=== PATIENT | female | born 1950 | race Caucasian/White ===

== ENCOUNTER 2021-03-19 20:50 | Outpatient (CLI) | payer MEDICARE, MEDICAID | END 2021-03-19 20:51 | disposition critical access hospital (66) | LOC: EMS 20:50 | DX: R55 Syncope and collapse (principal) | CPT/HCPCS: A0425; A0429 ==

== ENCOUNTER 2021-03-19 21:07 | Emergency (ER) | payer MEDICARE, MEDICAID ==
[2021-03-19] MEDS ORDERED: SODIUM CHLORIDE 0.9% 1,000 ML IV STA (21:17)
[2021-03-19 21:32] LABS: BASOPHILS # (AUTO) 0.1 10^3/uL (0.0-0.1); BASOPHILS % (AUTO) 0.5 %; EOSINOPHILS # (AUTO) 0.2 10^3/uL (0.0-0.7); EOSINOPHILS % (AUTO) 1.7 %; HCT - HEMATOCRIT 37.7 % (37.0-47.0); HGB - HEMOGLOBIN 12.9 g/dL (12.0-16.0); LYMPHOCYTES # (AUTO) 3.2 10^3/uL (1.5-3.5); MEAN CORPUSCULAR HEMOGLOBIN 31.4 pg (27.0-31.0); MEAN CORPUSCULAR HGB CONC 34.2 g/dL (32.0-36.0); MEAN CORPUSCULAR VOLUME 91.7 fL (81.0-99.0); MEAN PLATELET VOLUME 8.5 fL (7.9-10.8); MONOCYTES # (AUTO) 0.6 10^3/uL (0.0-1.0); MONOCYTES % (AUTO) 4.5 %; NEUTROPHILS # (AUTO) 8.3 10^3/uL (1.5-6.6); NEUTROPHILS % (AUTO) 66.7 %; PLT - PLATELET COUNT 242 10^3/uL (130-450); RED BLOOD COUNT 4.11 10^6/uL (4.20-5.40); RED CELL DISTRIBUTION WIDTH 14.1 % (12.0-15.0); WHITE BLOOD COUNT 12.5 x10^3/uL (4.8-10.8)
[2021-03-19 21:36] LABS: INR 1.1 (0.8-1.2); PT - PROTHROMBIN TIME 11.8 secs (9.9-12.6)
[2021-03-19 21:49] LABS: ALBUMIN 4.5 g/dL (3.2-5.5); ALBUMIN/GLOBULIN RATIO 1.4 (1.0-2.2); BILIRUBIN,TOTAL 0.4 mg/dL (0.2-1.0); CALCIUM 9.5 mg/dL (8.5-10.3); CREATININE 0.6 mg/dL (0.4-1.0); ETOH - ETHANOL 241.6 mg/dL; POTASSIUM 2.9 mmol/L (3.5-5.0); TOTAL PROTEIN 7.7 g/dL (6.7-8.2)
[2021-03-19] MEDS ORDERED: POTASSIUM CHLORIDE 20 MEQ TABLET PO STA (22:31)
--- NOTE | 2021-03-19 22:33 | ED Physician Documentation ---
History of Present Illness - Stated complaint Stated Complaint: GLF with LOC - Chief complaint Chief Complaint: Neuro - History obtained from History obtained from: Patient, Family, EMS - Additonal information Additional information: Patient is brought to the emergency department by EMS after having a ground- level fall at home. The patient does not remember exactly what happened. Medics state that they were told by the son, whom the patient was visiting, that she was walking through the kitchen when she suddenly fell. It is not clear whether she lost consciousness before, during, or as a result of the fall. The patient seemed to hit her head on the floor and was then unconscious for several minutes. She had had no complaints beforehand. Medics state that by the time they got there, the patient had awakened and that she had no complaints. They do report that the son was quite distraught on scene, but thought that the patient may have gotten into some alcohol. She also takes trazodone and Xanax, but it is unclear what time her last doses were. The patient's only complaint at this time is pain in her left shoulder, especially when she tries to move it. No shortness of breath. No rib pain. No hip pain. No back or neck pain. No head pain. She otherwise feels well. The patient resides with her daughter in [place], but was just here visiting her son in [place]. Review of Systems Ten Systems: 10 systems reviewed and negative Constitutional: reports: Reviewed and negative Eyes: reports: Reviewed and negative Ears: reports: Reviewed and negative Nose: reports: Reviewed and negative Throat: reports: Reviewed and negative Cardiac: reports: Reviewed and negative Respiratory: reports: Reviewed and negative GI: reports: Reviewed and negative : reports: Reviewed and negative Skin: reports: Reviewed and negative Musculoskeletal: reports: Joint pain Neurologic: reports: Reviewed and negative Psychiatric: reports: Reviewed and negative Endocrine: reports: Reviewed and negative Immunocompromised: reports: Reviewed and negative PD PAST MEDICAL HISTORY - Past Medical History Past Medical History: Yes Cardiovascular: High cholesterol Psych: Depression, Anxiety, Other Other Past Medical History: Insomnia - Past Surgical History Past Surgical History: Yes Ortho: Hip replacement, Spine surgery - Present Medications Home Medications: Ambulatory Orders Medication Instructions Recorded Confirmed Rovastatin 10 mg PO DAILY 03/19/21 Sertraline HCl 150 mg PO DAILY 03/19/21 03/19/21 Trazodone HCl 100 mg PO QPM 03/19/21 03/19/21 clonazePAM [Clonazepam] 0.5 mg PO DAILY PRN 03/19/21 03/19/21 HYDROcod/ACETAM 5/325 [[place] 5/325] 1 - 2 tablet PO Q6H PRN #20 tablet 03/20/21 Potassium Chloride [K-Dur] 20 meq PO BIDWM #14 tablet 03/20/21 - Allergies Allergies/Adverse Reactions: Allergies Allergy/AdvReac Type Severity Reaction Status Date / Time Penicillins Allergy Itching Verified 03/19/21 21:22 - Social History Does the pt smoke?: Yes Smoking Status: Current every day smoker Does the pt drink ETOH?: Yes ETOH Use: Beer Does the pt have substance abuse?: No - Immunizations Immunizations are current?: Yes - POLST Patient has POLST: No PD ED PE NORMAL - Vitals Vital signs reviewed: Yes - General General: No acute distress, Well developed/nourished, Other (Alert, oriented x2, which is baseline.) - HEENT HEENT: Atraumatic, PERRL, EOMI, Moist mucous membranes - Neck Neck: Supple, no meningeal sign, No bony TTP, Other (In C-spine precautions.) - Cardiac Cardiac: RRR, No murmur, Strong equal pulses - Respiratory Respiratory: No respiratory distress, Clear bilaterally - Abdomen Abdomen: Soft, Non tender, Non distended - Back Back: No spinal TTP - Derm Derm: Normal color, Warm and dry, No rash, Other (Atraumatic) - Extremities Extremities: No deformity, Other (Mild edema and contusion anterior left shoulder with moderate global tenderness of shoulder. Limited range of motion left upper extremity at the shoulder, secondary to pain.) - Neuro Neuro: slab grinder 2-12 intact, Normal speech, Other (Alert, oriented x2. Other than lack of memory of event, patient answers questions appropriately. No gross deficits otherwise.) - Psych Psych: Normal mood, Normal affect Results - Vitals Vitals: Vital Signs - 24 hr 03/19/21 03/19/21 03/19/21 21:07 21:46 22:18 Temperature 36.4 C L Heart Rate 59 L 68 76 Respiratory 22 20 16 Rate Blood Pressure 154/68 H 184/79 H 176/83 H O2 Saturation 97 97 98 05/03/19/21 03/20/21 22:37 22:57 00:15 Temperature 36.5 C 36.4 C L Heart Rate 72 68 85 Respiratory 17 18 17 Rate Blood Pressure 180/77 H 182/78 H 149/86 H O2 Saturation 96 100 97 Oxygen O2 Source Room air - EKG (time done) 2115 Rate: Rate (enter#) (59) Rhythm: NSR [place]: LAD Intervals: Normal OK QRS: Normal Ischemia: Normal ST segments, T wave inversion (V2) Compare to prior EKG: Old EKG unavailable Computer interpretation: Agree with computer - Labs Labs: Laboratory Tests 03/19/21 03/19/21 03/19/21 21:23 21:23 21:23 WBC 12.5 H RBC 4.11 L Hgb 12.9 Hct 37.7 MCV 91.7 MCH 31.4 H MCHC 34.2 RDW 14.1 Plt Count 242 MPV 8.5 Neut # (Auto) 8.3 H Lymph # (Auto) 3.2 [place] # (Auto) 0.6 Eos # (Auto) 0.2 Baso # (Auto) 0.1 Absolute Nucleated RBC 0.00 Nucleated RBC % 0.0 PT 11.8 INR 1.1 Sodium 132 L Potassium 2.9 L Chloride 91 L Carbon Dioxide 28 Anion Gap 13.0 BUN 8 Creatinine 0.6 Estimated GFR (MDRD) 99 Glucose 114 H Calcium 9.5 Total Bilirubin 0.4 AST 22 ALT 19 Alkaline Phosphatase 69 Troponin I High Sens Total Protein 7.7 Albumin 4.5 Globulin 3.2 Albumin/Globulin Ratio 1.4 Lipase 25 Urine Color Urine Clarity Urine pH Ur Specific [place] Urine Protein Urine Glucose (UA) Urine Ketones Urine Occult Blood Urine Nitrite Urine Bilirubin Urine Urobilinogen Ur Leukocyte Esterase Urine RBC Urine WBC Ur Squamous Epith Cells Urine Bacteria Ur Microscopic Review Urine Culture Comments Urine Opiates Screen Ur Oxycodone Screen Urine Methadone Screen Ur Propoxyphene Screen Ur Barbiturates Screen Ur Tricyclics Screen Ur Phencyclidine Scrn Ur Amphetamine Screen U Methamphetamines Scrn U Benzodiazepines Scrn Urine Cocaine Screen U Cannabinoids Screen Ethyl Alcohol 241.6 03/19/21 03/19/21 21:23 22:53 WBC RBC Hgb Hct MCV MCH MCHC RDW Plt Count MPV Neut # (Auto) Lymph # (Auto) [place] # (Auto) Eos # (Auto) Baso # (Auto) Absolute Nucleated RBC Nucleated RBC % PT INR Sodium Potassium Chloride Carbon Dioxide Anion Gap BUN Creatinine Estimated GFR (MDRD) Glucose Calcium Total Bilirubin AST ALT Alkaline Phosphatase Troponin I High Sens 14.7 Total Protein Albumin Globulin Albumin/Globulin Ratio Lipase Urine Color YELLOW Urine Clarity CLEAR Urine pH 7.0 Ur Specific [place] 1.010 Urine Protein NEGATIVE Urine Glucose (UA) NEGATIVE Urine Ketones NEGATIVE Urine Occult Blood TRACE-INTA Urine Nitrite NEGATIVE Urine Bilirubin NEGATIVE Urine Urobilinogen 0.2 (NORMAL) Ur Leukocyte Esterase TRACE H Urine RBC 0-5 Urine WBC 0-3 Ur Squamous Epith Cells RARE Squamous Urine Bacteria Few Ur Microscopic Review INDICATED Urine Culture Comments INDICATED Urine Opiates Screen POSITIVE H Ur Oxycodone Screen NEGATIVE Urine Methadone Screen NEGATIVE Ur Propoxyphene Screen NEGATIVE Ur Barbiturates Screen NEGATIVE Ur Tricyclics Screen NEGATIVE Ur Phencyclidine Scrn NEGATIVE Ur Amphetamine Screen NEGATIVE U Methamphetamines Scrn NEGATIVE U Benzodiazepines Scrn NEGATIVE Urine Cocaine Screen NEGATIVE U Cannabinoids Screen POSITIVE H Ethyl Alcohol - Rads (name of study) head CT Radiology: Final report received, EMP read indepedently, See rad report (nad) cervical spine CT Radiology: Final report received, EMP read indepedently, See rad report (nad) L shoulder XR Radiology: Final report received, EMP read indepedently, See rad report (Impacted surgical neck fracture left humerus) PD MEDICAL DECISION MAKING - ED course Complexity details: reviewed results, re-evaluated patient, considered differential, d/w patient, d/w family ED course: The patient was worked up with labs, EKG, CT of the head and C-spine, and left shoulder x-ray series. She was found to be hypokalemic and was given a dose of potassium orally here in the emergency department. She was found to have a significantly elevated ethanol level at 241. Left shoulder x-ray series showed an impacted surgical neck fracture of the proximal humerus. CT scans were unremarkable. Urinalysis did not show a UTI. The patient was placed in a shoulder immobilizer. I discussed with patient and daughter the findings, and daughter did relate that the son relays that the patient had somehow gotten hold of a bottle of wine that she had probably had drunk the whole thing. At the time of her fall, he did not realize she had been drinking. Daughter states the patient does occasionally drink to help with her anxiety, but that at her daughter's home, they do not keep alcohol and the patient does not have access to it. The patient is stable for discharge home. I have discussed with patient and daughter the need for orthopedic follow-up and since the patient and daughter live in [place], I have given them [facility] for follow-up. They are instructed to call first thing tomorrow morning to make an appointment. Regarding her hypokalemia, I will prescribe a week's worth of potassium supplements, after which the patient should follow-up with her primary care physician for repeat potassium levels. I discussed this with the daughter. We have discussed home management and symptoms, including pain control, as well as the usual indications for return Departure - Departure Disposition: 01 Home, Self Care Clinical Impression: Hypokalemia, Fall from ground level Acute alcohol intoxication Qualifiers: Complication of substance-induced condition: uncomplicated Qualified Code(s): F10.920 - Alcohol use, unspecified with intoxication, uncomplicated Fracture, humerus closed Qualifiers: Encounter type: initial encounter Humerus Location: proximal Fracture morphology: unspecified fracture morphology Laterality: left Qualified Code(s): S42.202A - Unspecified fracture of upper end of left humerus, initial encounter for closed fracture Condition: Stable Instructions: ED Alcohol Intoxication, ED Fx Upper Ext, ED Potassium Deficiency Follow-Up: Avtar Raines MD [Physician No Access] - Prescriptions: Potassium Chloride [K-Dur] 20 meq PO BIDWM #14 tablet HYDROcod/ACETAM 5/325 [[place] 5/325] 1 - 2 tablet PO Q6H PRN #20 tablet PRN Reason: Pain Comments: The CT scans of the head and neck are negative for evidence of trauma. The laboratory studies overall look fairly good, with the exception of the potassium, which was low, and alcohol level, which was quite high. The x-ray of the shoulder shows a break in the early part of the upper arm bone, the humerus, at the shoulder. He has been placed in a shoulder immobilizer for this, and will never need to wear this until you are able to follow-up with orthopedics. You have been given the name of one of the Orthopedic specialists at the [facility]. You may call. In particular, Dr. Corona (who does not happen to be listed in our system) specializes in shoulders. Please call their office first thing in the morning to set up a follow-up appointment. You may take the pain medication as needed, but please do not drink any alcohol with this. As far as your potassium, we will have you take potassium replacement for a week, at the end of which you should see your doctor to have your levels rechecked. Please call first thing tomorrow to make an appointment to follow-up with your doctor about your potassium, as well. Discharge Date/Time: 03/20/21 00:24
[2021-03-19 22:58] LABS: MUDS CUTOFF CONCENTRATIONS CUTOFF CONC BELOW:
[2021-03-19 23:01] LABS: BILIRUBIN,URINE NEGATIVE (NEGATIVE); GLUCOSE, URINE (UA) NEGATIVE (NEGATIVE); KETONES,URINE (UA) NEGATIVE (NEGATIVE); LEUKOCYTE ESTERASE, URINE TRACE (NEGATIVE); NITRITE,URINE NEGATIVE (NEGATIVE); OCCULT BLOOD,URINE TRACE-INTA (NEGATIVE); PROTEIN,URINE NEGATIVE (NEGATIVE); UROBILINOGEN,URINE 0.2 (NORMAL) E.U./dL (NORMAL)
[2021-03-19 23:06] LABS: CLARITY,URINE CLEAR (CLEAR)
[2021-03-19 23:11] LABS: RBC,URINE 0-5 /HPF (0-5); SQUAMOUS EPITHELIAL CELL,UR RARE Squamous (<= Few); WBC,URINE 0-3 /HPF (0-5)
[2021-03-19 23:12] LABS: AMPHETAMINE SCREEN,URINE NEGATIVE (NEGATIVE); BACTERIA,URINE Few /HPF (None Seen); BARBITURATE SCREEN,UR NEGATIVE (NEGATIVE); BENZODIAZEPINES SCREEN, URINE NEGATIVE (NEGATIVE); COCAINE SCREEN URINE NEGATIVE (NEGATIVE); METHADONE SCREEN, URINE NEGATIVE (NEGATIVE); METHAMPHETAMINES SCREEN, URINE NEGATIVE (NEGATIVE); OPIATE SCREEN, URINE POSITIVE (NEGATIVE); OXYCODONE SCREEN, URINE NEGATIVE (NEGATIVE); PROPOXYPHENE SCREEN, URINE NEGATIVE (NEGATIVE); THC CANNABINOID SCREEN, URINE POSITIVE (NEGATIVE); TRICYCLIC ANTIDEPRESSANT,URINE NEGATIVE (NEGATIVE)
[2021-03-20 00:37] VITALS: BP 149/86
--- NOTE | 2021-03-20 07:02 | CT Report ---
PROCEDURE: HEAD WO INDICATIONS: FALL/TRAUMA/LOC TECHNIQUE: Noncontrast 4.5 mm thick angled axial sections acquired from the foramen magnum to the vertex. For r adiation dose reduction, the following was used: automated exposure control, adjustment of mA and/or kV according to patient size. COMPARISON: None FINDINGS: Image quality: Excellent. CSF spaces: Basal cisterns are patent. No extra-axial fluid collections. The ventricles are symmet miguel in size and shape. None Brain: No intracranial bleeds or masses. There is cerebral volume loss for age, with resultant vent ricular and sulcal prominence. There are periventricular and deep white matter chronic small vessel ischemic changes. Small chronic right caudate head, left thalamic left putamen lacunar infarcts. The re is intracranial internal carotid artery atherosclerosis. Skull and face: Calvarium and visualized facial bones appear intact, without suspicious lesions. Sinuses: Visualized sinuses and mastoids are clear. IMPRESSION: No acute intracranial disease process. Reviewed by: Suzanne Carrasco MD, PhD on 03/20/2021 7:01 AM PDT Approved by: Suzanne Carrasco MD, PhD on 03/20/2021 7:01 AM PDT Station ID: [id number]
--- NOTE | 2021-03-20 07:29 | CT Report ---
PROCEDURE: CERVICAL SPINE WO INDICATIONS: fall/head injury/etoh TECHNIQUE: Noncontrast 3 mm thick sections acquired from the skull base to the T4 level. Sagittal and coronal r eformats were then constructed. For radiation dose reduction, the following was used: automated exp osure control, adjustment of mA and/or kV according to patient size. COMPARISON: None. FINDINGS: Image quality: Excellent. Bones: No fractures or dislocations. Visualized superior ribs are intact. Spine degenerative disc d isease and facet arthropathy are noted. Soft tissues: Prevertebral soft tissues are normal in thickness. No paravertebral hematomas. No ap ical pneumothoraces. IMPRESSION: No fracture. No acute osseous lesion. If there is continued clinical concern for pathology, then MRI should be considered for further evaluation. Reviewed by: Suzanne Carrasco MD, PhD on 03/20/2021 7:28 AM PDT Approved by: Suzanne Carrasco MD, PhD on 03/20/2021 7:28 AM PDT Station ID: [id number]
--- NOTE | 2021-03-20 09:15 | XRAY Report ---
PROCEDURE: Shoulder 3 View LT INDICATIONS: fall/pain TECHNIQUE: 3 views of the shoulder were acquired. COMPARISON: None FINDINGS: Bones: There is a mildly displaced humeral surgical neck fracture with slight inferior subluxation of the glenohumeral joint space. No suspicious bony lesions. Visualized ribs appear intact. Soft tissues: No suspicious soft tissue calcifications. IMPRESSION: Mildly displaced surgical humeral neck fracture with inferior subluxation at the glenohu meral joint space. Reviewed by: Chantal Escobedo MD on 03/20/2021 9:14 AM PDT Approved by: Chantal Escobedo MD on 03/20/2021 9:14 AM PDT Station ID: [id number]
== END 2021-03-20 00:24 | disposition home or self-care (01) ==
LOC: ED 21:07
DX: S42.212A Unspecified displaced fracture of surgical neck of left humerus, initial encounter for closed fracture (principal); W18.39XA Other fall on same level, initial encounter; Y93.01 Activity, walking, marching and hiking; Y92.000 Kitchen of unspecified non-institutional (private) residence as the place of occurrence of the external cause; E87.6 Hypokalemia; F10.920 Alcohol use, unspecified with intoxication, uncomplicated; Y90.8 Blood alcohol level of 240 mg/100 ml or more; M50.30 Other cervical disc degeneration, unspecified cervical region; F17.200 Nicotine dependence, unspecified, uncomplicated
CPT/HCPCS: 36415; 70450; 72125; 73030; 80053; 80306; 81001; 83690; 84484; 85025; 85610; 87086; 93005; 99284; A9270; G0480; 80320; 81003